=== PATIENT | male | born 1995 | race Caucasian/White ===

== ENCOUNTER 2017-02-20 18:55 | Emergency (ER) | payer OTHER ==
[2017-02-20 20:03] LABS: ABSOLUTE EOSINOPHILS # (AUTO) 0.1 10^3/uL (0.0-0.6); ABSOLUTE LYMPHOCYTES (AUTO) 2.2 10^3/uL (0.5-4.7); ABSOLUTE MONOCYTES (AUTO) 0.3 10^3/uL (0.1-1.4); BASOPHILS % (AUTO) 0.5 % (0-2); EOSINOPHILS % (AUTO) 1.1 % (0-6); HEMATOCRIT 46.1 % (37.9-51.0); HEMOGLOBIN 15.9 g/dL (13.5-17.0); HGB HCT DIFFERENCE 1.6; MEAN CORPUSCULAR HEMOGLOBIN 32.7 pg (27.0-33.4); MEAN CORPUSCULAR HGB CONC 34.4 g/dL (32.0-36.0); MEAN CORPUSCULAR VOLUME 95 fl (80-97); MONOCYTES % (AUTO) 5.6 % (3-13); RED BLOOD COUNT 4.86 10^6/uL (4.35-5.55); RED CELL DISTRIBUTION WIDTH 12.3 % (11.5-14.0); SEGMENTED NEUTROPHILS % (AUTO) 53.8 % (42-78); WHITE BLOOD COUNT 5.6 10^3/uL (4.0-10.5)
[2017-02-20 20:10] LABS: AMORPHOUS SEDIMENT,URINE TRACE /HPF; APPEARANCE,URINE CLOUDY; BILIRUBIN,URINE NEGATIVE (NEGATIVE); GLUCOSE, URINE NEGATIVE (NEGATIVE); KETONES,URINE NEGATIVE (NEGATIVE); LEUKOCYTE ESTERASE,URINE NEGATIVE (NEGATIVE); NITRITE,URINE NEGATIVE (NEGATIVE); PROTEIN,URINE NEGATIVE (NEGATIVE); URINE SPECIFIC GRAVITY 1.024; UROBILINOGEN,URINE NEGATIVE mg/dL (<2.0)
[2017-02-20 20:15] LABS: ALANINE AMINOTRANSFERASE 40 U/L (21-72); ALKALINE PHOSPHATASE 61 U/L (38-126); ANION GAP 16 (5-19); ASPARTATE AMINO TRANSFERASE 25 U/L (17-59); BILIRUBIN,DIRECT 0.3 mg/dL (0.0-0.4); BILIRUBIN,TOTAL 0.5 mg/dL (0.2-1.3); BLOOD UREA NITROGEN 14 mg/dL (7-20); CALCIUM 10.3 mg/dL (8.4-10.2); CARBON DIOXIDE 27 mmol/L (22-30); CHLORIDE 101 mmol/L (98-107); CREATININE RESULT 0.91 mg/dL (0.52-1.25); GLUCOSE 100 mg/dL (75-110); POTASSIUM 4.2 mmol/L (3.6-5.0); SODIUM 143.5 mmol/L (137-145); TOTAL PROTEIN 8.1 g/dL (6.3-8.2)
[2017-02-20 20:22] LABS: URINE BARBITURATES SCREEN NEGATIVE; URINE METHADONE SCREEN NEGATIVE; URINE OPIATES LOW NEGATIVE; URINE PHENCYCLIDINE SCREEN NEGATIVE
[2017-02-20 20:33] LABS: ALCOHOL < 10 mg/dL (NONE DETECTED)
--- NOTE | 2017-02-20 20:41 | ER Document Report ---
ED Psych Disorder / Suicide - General Mode of Arrival: Ambulatory Information source: Patient, [facility] Records TRAVEL OUTSIDE OF THE [place] IN LAST 30 DAYS: No - HPI Patient complains to provider of: Suicidal plan Onset: Yesterday Suicide Risk Factors: Depressed, Lethal weapons in home, Male Situational problems related to: Lost job Associated symptoms: Depressed <BIBI JACOBS - Last Filed: 02/20/17 20:35> <KATTY KENNEDY - Last Filed: 02/20/17 23:32> - General Chief Complaint: Psych Problem Stated Complaint: SUICIDAL Time Seen by Provider: 02/20/17 20:05 Notes: Patient is a 21-year-old male presenting to the emergency department accompanied by his roommate's stating that he tried to shoot himself in the head last night, but could not find the arciniega to the box with the gun. Patient states that he has had suicidal ideation intermittently for several years, but has been able to stop himself from acting on it each time. Patient reports stress from chronic back pain and being medically from the [employer] in July 2016. He states that he did not want to be . Patient used to see a psychiatrist and was prescribed trazodone for sleeping difficulty, but has run out and is having more difficulty sleeping. Patient also reports participating in group therapy in the past, but believes it to be "bull shit." Patient states that he just wants to stop thinking. Patient also admits to headaches and intermittent diarrhea (multiple episodes 2-3 days per week). Patient denies any nausea, vomiting, difficulty breathing, or chest pain. Patient mentions that his father had a dissected aorta and history of mental illness. (BIBI JACOBS) Past Medical History - General Information source: Patient, [facility] Records - Social History Smoking Status: Current Every Day Smoker Cigarette use (# per day): Yes Chew tobacco use (# tins/day): No Frequency of alcohol use: Rare Drug Abuse: Marijuana Lives with: Friend Family History: Reviewed & Not Pertinent Patient has suicidal ideation: Yes Patient has homicidal ideation: Yes Renal/ Medical History: Denies: Hx Peritoneal Dialysis Psychiatric Medical History: Reports: Hx Depression, Other - Difficulty sleeping <BIBI JACOBS - Last Filed: 02/20/17 20:35> Review of Systems - Review of Systems Constitutional: No symptoms reported EENT: No symptoms reported Cardiovascular: No symptoms reported. denies: Chest pain Respiratory: No symptoms reported. denies: Short of breath Gastrointestinal: See HPI, Diarrhea - Intermittent. denies: Nausea, Vomiting Genitourinary: No symptoms reported Male Genitourinary: No symptoms reported Musculoskeletal: See HPI, Back pain Skin: No symptoms reported Hematologic/Lymphatic: No symptoms reported Neurological/Psychological: See HPI, Depression, Suicidal ideation -: Yes All other systems reviewed and negative <BIBI JACOBS - Last Filed: 02/20/17 20:35> Physical Exam <BIBI JACOBS - Last Filed: 02/20/17 20:35> <KATTY KENNEDY - Last Filed: 02/20/17 23:32> - Vital signs Vitals: Temp Pulse Resp BP Pulse Ox 98.9 F 88 18 158/91 H 99 02/20/17 19:01 02/20/17 19:01 02/20/17 19:01 02/20/17 19:01 02/20/17 19:01 - Notes Notes: GENERAL: Alert, interacts well. No acute distress. HEAD: Normocephalic, atraumatic. EYES: Pupils equal, round, and reactive to light. Extraocular movements intact. ENT: Oral mucosa moist, tongue midline. NECK: Full range of motion. Supple. Trachea midline. LUNGS: Clear to auscultation bilaterally, no wheezes, rales, or rhonchi. No respiratory distress. HEART: Regular rate and rhythm. No murmurs, gallops, or rubs. ABDOMEN: Soft, non-tender. Non-distended. Bowel sounds present in all 4 quadrants. EXTREMITIES: Moves all 4 extremities spontaneously. No edema. No cyanosis. NEUROLOGICAL: Alert and oriented x3. Normal speech. PSYCH: Depressed. SKIN: Warm, dry, normal turgor. No rashes or lesions noted. (BIBI JACOBS) Course - Laboratory Result Diagrams: 02/20/17 19:50 02/20/17 19:50 <BIBI JACOBS - Last Filed: 02/20/17 20:35> - Laboratory Result Diagrams: 02/20/17 19:50 02/20/17 19:50 <KATTY KENNEDY - Last Filed: 02/20/17 23:32> - Re-evaluation Re-evalutation: 02/20/17 23:31 CBC unremarkable, CMP unremarkable with the exception of slightly elevated calcium at 10.3, urinalysis negative, urine drug screen negative, undetectable salicylate, acetaminophen and alcohol. (KATTY KENNEDY) - Vital Signs Vital signs: Temp Pulse Resp BP Pulse Ox 98.9 F 88 18 158/91 H 99 02/20/17 19:01 02/20/17 19:01 02/20/17 19:01 02/20/17 19:01 02/20/17 19:01 - Laboratory Laboratory results interpreted by me: 02/20/17 19:50 Calcium 10.3 H Salicylates < 1.0 L Acetaminophen < 10 L - EKG Interpretation by Me Additional EKG results interpreted by me: 02/20/17 23:32 EKG shows sinus rhythm at a rate of 86, normal axis, normal intervals, no ST segment elevations or depressions, no T-wave inversions per my interpretation. ( KATTY KENNEDY) Discharge <BIBI JACOBS - Last Filed: 02/20/17 20:35> <KATTY KENNEDY - Last Filed: 02/20/17 23:32> - Discharge Clinical Impression: Depression with suicidal ideation Condition: Stable Disposition: PSYCH HOSP/UNIT Scribe Attestation: 02/20/17 23:32 I personally performed the services described in the documentation, reviewed and edited the documentation which was dictated to the scribe in my presence, and it accurately records my words and actions. (KATTY KENNEDY) Scribe Documentation - Scribe Written by Ger:: Ger Ramsey, 02/20/[id number] acting as scribe for :: Lamonte <BIBI JACOBS - Last Filed: 02/20/17 20:35>
--- NOTE | 2017-02-21 08:22 | EKG REPORT ---
SEVERITY:- NORMAL ECG - SINUS RHYTHM : Confirmed by: Devon Whitman MD 21-Feb-2017 08:21:15
--- NOTE | 2017-02-21 09:21 | ER Document Report ---
Doctor's Note Notes: 02/21/17 09:20 Patient evaluated at bedside, resting comfortably on stretcher, no needs at this time, chart and lab findings were reviewed as well as vital signs, pending plan and disposition per mental health
--- NOTE | 2017-02-21 13:16 | ER Document Report ---
ED Psych Disorder / Suicide - General Chief Complaint: Psych Problem Stated Complaint: SUICIDAL Time Seen by Provider: 02/20/17 20:05 Mode of Arrival: Ambulatory TRAVEL OUTSIDE OF THE [place] IN LAST 30 DAYS: No - HPI Patient complains to provider of: Suicidal plan - did not have means, intent questionable Suicide Risk Factors: Depressed, Male, No spouse Situational problems related to: Work, Other - overwhelmed with decisions for future Associated symptoms: Normal affect, Normal mood Notes: Patient is a 21-year-old male presenting to the emergency department accompanied by his roommate's stating that he tried to shoot himself in the head last night, but could not find the arciniega to the box with the gun. Patient states that he has had suicidal ideation intermittently for several years, but has been able to stop himself from acting on it each time. Patient reports stress from chronic back pain and being medically from the [employer] in July 2016. He states that he did not want to be . Patient used to see a psychiatrist and was prescribed trazodone for sleeping difficulty, but has run out and is having more difficulty sleeping. Patient also reports participating in group therapy in the past, but believes it to be "bull shit." Patient states that he just wants to stop thinking. Patient disclosed he wanted to shoot himself. He stated that he was unable to find the arciniega in his room and that is why he did not follow through with his plan. Patient states that he "woke up with an attitude" and his roommate started to lecture him in the argued. He decided that he no longer wanted to deal with anything. 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 He stated that he spoke to another student about wanting to kill himself in his plan. That person told the active-duty instructor. He continued disclosed that he was receiving mental health assistance while active for depression and insomnia and was given trazodone. Patient states that he was medically discharged for a back injury in July 2016. He continued disclosed that he "was not treated like a human being." He continued disclosed that there were multiple times with a different units and different settings that he was then where they gave him a hard time. Patient states that he feels self-conscious on how he walks because of his back. He continued to state that he feels worthless and when he starts the future feels overwhelmed. Patient states "I do not think I am ready for school." Patient states that he has a list of people that "I would not that and I at killing." Patient then stated he just does not know what he wants to do for the future. Patient is alert and orientated to person place time and circumstance. Mood is euthymic with restricted affect. Patient endorses suicidal ideation with plan. Patient does not have at 2 weapon. Patient states he has a list of people he would not mind killing however does not think on it. Patient does not have plan means or intent. Patient denies chin; patient is not demonstrating any behavior congruent to responding to internal stimuli. No delusions noted. Thought process is organized and linear. Thought content appears to be overwhelmed with lack of problem solving skills. Conversational speech was within normal rate tone and prosody. Eye contact was fair. Intellectual abilities appear to be average range. Attention and concentration are fair. Insight, judgment, impulse control are fair. 311 (F32.9) unspecified depressive disorder V 62.9 (Z69) unspecified problem related to unspecified psychosocial circumstances R/O ADHD r/o social communication disorder impression\\Plan: Patient is recommended for rescind of IVC and is considered psychiatrically clear for discharge. Patient does not meet IVC criteria per [place] GS 122C. Patient discloses thoughts of suicide however their are indications the patient is using this as a way to communicate his deep depression and overwhelming anxiety in regards to making decisions for his future. Clinician spoke with patient's roommates who agreed to be part of discharge plan. Patient no longer has access to any weapons. They agreed to ensure the patient has no access to any medication. Patient is recommended for outpatient services. Dr. Watkins was consulted on the care and management of this patient ; attending physician is in agreement with recommendations and disposition - Related Data Home Medications: Current Home Medications No Home Medications 02/21/17 [History] Past Medical History - General Information source: Patient, [facility] Records - Social History Smoking Status: Current Every Day Smoker Cigarette use (# per day): Yes Chew tobacco use (# tins/day): No Frequency of alcohol use: Rare Drug Abuse: Marijuana Lives with: Friend Family History: Reviewed & Not Pertinent Patient has suicidal ideation: Yes Patient has homicidal ideation: Yes Renal/ Medical History: Denies: Hx Peritoneal Dialysis Psychiatric Medical History: Reports: Hx Depression, Other - Difficulty sleeping Physical Exam - Vital signs Vitals: Temp Pulse Resp BP Pulse Ox 98.9 F 88 18 158/91 H 99 02/20/17 19:01 02/20/17 19:01 02/20/17 19:01 02/20/17 19:01 02/20/17 19:01 Course - Vital Signs Vital signs: Temp Pulse Resp BP Pulse Ox 98.3 F 83 15 123/80 98 02/21/17 06:49 02/21/17 06:49 02/21/17 06:49 02/21/17 06:49 02/21/17 06:49 - Laboratory Result Diagrams: 02/20/17 19:50 02/20/17 19:50 Laboratory results interpreted by me: 02/20/17 19:50 Calcium 10.3 H Salicylates < 1.0 L Acetaminophen < 10 L Discharge - Discharge Clinical Impression: Depression with suicidal ideation Condition: Stable Disposition: HOME, SELF-CARE Additional Instructions: DEPRESSION: Your evaluation reveals that you have mental depression. While symptoms may be vague, they often include disturbance of sleep, fatigue, loss of appetite , and general loss of interest in life. While depression may be a side effect of drugs, or a reaction to a major change in your life, many cases have no known cause. If depression is acute, and related to a major loss in your life, you can expect it to clear completely with time. If you have been depressed a long time , are prone to repeated bouts of depression or low mood, or have been thinking of suicide, get help. Depression can be treated with anti-depressant medication and counselling. Long-term depression will often take a few weeks to clear, even with appropriate medication. Follow-up care is important. SUICIDAL IDEATION: Suicidal ideation is a common medical term for thoughts about suicide, which may be as detailed as a formulated plan, without the suicidal act itself. Although most people who undergo suicidal ideation do not commit suicide, some go on to make suicide attempts. The range of suicidal ideation varies greatly from fleeting to detailed planning, role playing, and unsuccessful attempts. While thoughts about suicide are common, most people do not carry out serious actions to commit suicide. Based upon your evaluation and discussion with you, we do not believe you are currently at risk to act upon your thoughts of suicide. You have agreed to return to the Emergency Department, at any time , if you feel inclined to act upon your suicidal thoughts. FOLLOW-UP CARE: Please follow up with the [facility] for mental health services within 3-5 days. If you experience worsening or a significant change in your symptoms, notify the physician immediately or return to the Emergency Department at any time for re- evaluation. Ger Attestation: 02/20/17 23:32 I personally performed the services described in the documentation, reviewed and edited the documentation which was dictated to the scribe in my presence, and it accurately records my words and actions.
[2017-02-21 13:52] VITALS: BP 145/68
== END 2017-02-21 13:50 | disposition home or self-care (01) ==
LOC: ER 18:55
DX: F32.9 Major depressive disorder, single episode, unspecified (principal); R45.851 Suicidal ideations; R51 Headache; R19.7 Diarrhea, unspecified; M54.9 Dorsalgia, unspecified; G89.29 Other chronic pain; F17.210 Nicotine dependence, cigarettes, uncomplicated; Z81.8 Family history of other mental and behavioral disorders
CPT/HCPCS: 36415; 80053; 80307; 81001; 85025; 93005; 93010; 99284